=== PATIENT | male | born 1940 | race Caucasian/White ===

== ENCOUNTER 2024-08-13 09:29 | Emergency (ER) | payer MEDICARE, OTHER, SELFPAY ==
[2024-08-13 09:33] VITALS: BP 130/61
[2024-08-13 09:36] VITALS: BP 130/61
[2024-08-13 09:59] LABS: % Basophils 0.4 % (0-2); % Eosinophils 0.4 % (0-6); % Immature Granulocytes 0.2 % (0-0.5); % Lymphocytes 17.9 % (20.5-51.1); % Monocytes 8.3 % (1.7-9.3); % Neutrophils 72.8 % (42.2-75.2); Absolute Lymphocytes 1.6 10^3/uL (1.2-3.4); Absolute Monocytes 0.8 10^3/uL (0.1-0.6); Absolute Neutrophils 6.6 10^3/uL (1.4-6.5); Hemoglobin 14.8 g/dL (13.0-18.0); Mean Corp Hgb Conc. 33.6 g/dL (33.0-37.0); Mean Corpuscular Hgb 31.2 pg (27.0-31.0); Mean Corpuscular Volume 92.8 fL (80.0-94.0); Mean Platelet Volume 9.9 fL (7.4-10.4); Nucleated Red Blood Cells % 0 % (-); Platelet Count 156 10^3/uL (130-400); Red Blood Cell Count 4.74 10^6/uL (4.70-6.10); White Blood Cell Count 9.1 10^3/uL (4.8-10.8)
[2024-08-13 10:00] VITALS: BP 103/56
[2024-08-13 10:09] LABS: COVID-19 Antigen Positive (Negative)
[2024-08-13 10:11] LABS: Blood Urea Nitrogen 28 mg/dl (9-20); Calcium 9.2 mg/dl (8.4-10.2); Carbon Dioxide 25 mmol/L (22-30); Chloride 105 mmol/L (98-107); Glucose 112 mg/dl (70-99); Sodium 142 mmol/L (135-145); eGFR > 60.00
[2024-08-13 10:12] LABS: Lactic Acid 1.3 mmol/L (0.7-2.0)
--- NOTE | 2024-08-13 10:58 | ED.GENMED ---
History of Present Illness
General
Chief Complaint: Cold/Flu/URI Symptoms
Source: patient and records
Exam Limitations: clinical condition, non verbal-adult, altered mental status and dementia
Time Seen by Provider: 08/13/24 09:55
Nursing documentation reviewed up to this point in time: agreed with
History of Present Illness
History of Present Illness:
84-year-old male half-way patient nonverbal multiple chronic medical conditions presents with cough congestion low pulse ox in the high 80s currently diagnosed with COVID symptoms started 2 days ago here he has occasional cough, oxygen is fine
on room air unable to provide much meaningful history
Past History
Past History
ED Past Medical History: Other (Dementia)
ED Past Surgical History: None
Social History
Tobacco: Non-smoker
Alcohol: None
Drug: None
Living: half-way
Employment: Not employed
Phy Exam
Physical Exam
Physical Exam:
Physical Exam
General: Chronically ill male
Neck: Dry lips
Heart: Regular
Lungs: Crackles bilateral
Abdomen: Soft
Neuro: Confused aphasic
Skin: no rash
Psychiatric: unable to access
Extremities: no edema.
Sepsis
Sepsis Screening
Sepsis Assessment: Sepsis Ruled Out
Sepsis Screen
Sepsis Screen: Sepsis Ruled Out
Date: 08/13/24
Time: 12:16
Course
Orders/Labs/Results
Orders:
Orders
08/13/24 09:41
CXR2 [CR Chest - 2 Views ] Urgent
Comment:
Reason For Exam: cough
08/13/24 09:44
Basic Metabolic Panel Urgent
COVID-19 Antigen Urgent
Source: Nasal Swab
Complete Blood Count/With Diff Urgent
Lactic Acid Urgent
Blood Culture Urgent
ADELFO Source: Blood/Venous
Specimen Description:
08/13/24 11:15
0.9% Sodium Chloride 1000 ml [Nss] 1,000 ml IV BOLUS
Acetaminophen [Tylenol Suspension] 650 mg PO NOW STA
Abnormal Lab Results
08/13/24
09:44
MCH 31.2 H pg
(27.0-31.0)
Absolute Neuts (auto) 6.6 H 10^3/uL
(1.4-6.5)
Absolute Monos (auto) 0.8 H 10^3/uL
(0.1-0.6)
Lymphocytes % 17.9 L %
(20.5-51.1)
BUN 28 H mg/dl
(9-20)
Glucose 112 H mg/dl
(70-99)
SARS-CoV-2 Antigen Positive A
(Negative)
08/13/24 09:44
08/13/24 09:44
Vital Signs
Initial and Last Documented VS:
Initial Vital Signs
Temp Pulse Resp BP Pulse Ox
100 F 88 18 130/61 93
08/13/24 09:33 08/13/24 09:33 08/13/24 09:33 08/13/24 09:33 08/13/24 09:33
Last Documented Vital Signs
Temp Pulse Resp BP Pulse Ox
100 F 89 19 115/71 93
08/13/24 09:33 08/13/24 11:00 08/13/24 11:00 08/13/24 11:00 08/13/24 10:45
MDM/Problems Addressed
Differential Diagnosis Includes:
Pneumonia COVID dehydration electrolyte abnormality
MDM/Problems Addressed:
Question of low pulse ox dehydration COVID
Chronic conditions affecting care: DM and Neurological disorder
Acute Exacerbation and/or Progression of Chronic Illness: DM and Neurological disorder
*Radiology
Radiology exam reviewed: radiology read reviewed
*Pulse Oximetry
Patient hypoxic: no
*Gas[employer] Service Attendant Interpretation
Rate: normal
Interpretation: normal
Heart Rate: 78
*Critical Care Note
Total Time (30-74mins, 75-104mins- exclusive of procedures): Not Applicable
Update Note
Update Note:
Update patient oxygenating well here does look dehydrated with low-grade fever we will start saline and some Tylenol chest x-ray is pending will touch base with pharmacy to see if he would be a candidate for Paxlovid
1215, reviewed with pharmacy he can take Paxlovid
ED Attending Note
-
Portions of this chart may have been created with voice recognition software.� Occasional wrong word or��sound alike� substitutions may have occurred due to the inherent limitations of voice recognition software.
Discharge Plan
Departure
Patient Disposition: Longterm/SNF
Date of Disposition: 08/13/24
Time of Disposition: 12:13
Condition: Fair
Covid-19: Confirmed COVID-19
Discharge Problem:
COVID-19
Instructions: COVID-19 ED, COVID-19 in adults - Discharge instructions
Prescriptions:
New
Paxlovid 150 mg x 2- 100 mg Tablet
See Rx Instructions .ROUTE .COMPLEX 5 Days Qty: 30 0RF
Rx Instructions:
1 dose PO BID
Take Nirmatrelvir 300 mg (2 tabs) and Ritonavir 100 mg (1 tab) by mouth twice a day in AM and PM for 5 days.
No Action
potassium chloride 10 MEQ capsule, extended release
20 meq PO DAILY
donepezil 10 MG tablet
10 mg PO DAILY
sertraline 50 MG tablet
50 mg PO DAILY
miconazole nitrate [Miconazorb AF] 1 APPLIC powder
1 applic topical Q8HPRN PRN (Reason: red,irritated skin in groin)
magnesium hydroxide 30 ML suspension
30 ml PO DAILYPRN PRN (Reason: if no bm x 3 days)
bisacodyl 10 MG suppository
10 mg SC DAILYPRN PRN (Reason: if mom ineffective in 8 hrs)
sennosides [senna] 1 TABLET tablet
2 tab PO DAILY
acetaminophen 325 mg Tablet
650 mg PO BID
aspirin 81 mg Tablet,Delayed Release (Dr/Ec)
81 mg PO DAILY
emollient Lotion
1 ea topical BID
Glucagon Emergency Kit (human) 1 mg recon soln
1 mg IM PRN PRN (Reason: hypoglycemia)
Rx Instructions:
May repeat in 15min if still symptomatic
insulin lispro [Humalog KwikPen Insulin] 100 unit/mL insulin pen
0 sliding scale dose SC ACHS
Rx Instructions:
if 201-250: 2 units; 251-300: 4 units; 301-350: 6 units; 351-400: 8 units; 401-450: 10 units. Call MD if BS<60 or >450.
(DME) Skin-Prep Wipes Swab
MISCELLANEOUS
Rx Instructions:
Apply to heels and achillies every PM
acetaminophen 325 MG tablet
650 mg PO Q4HPRN PRN (Reason: mild pain/ fever>100F)
Rx Instructions:
not to exceed 3000mg/day
insulin glargine [Lantus U-100 Insulin] 1,000 UNITS/10 ML solution
18 units SC HS
docusate sodium 100 MG capsule
100 mg PO BID
insulin aspart U-100 [Novolog FlexPen U-100 Insulin] 300 UNITS/3 ML insulin pen
5 unit SC BID@1200,1700
Rx Instructions:
before lunch and dinner
Referrals:
Brad Gustafson I., DO [Family Provider] -
Interventions
Interventions:
*Risk Screen - Suicide Last Done: 08/13/24 09:33
*General Assessment Last Done: 08/13/24 09:33
*Neglect/Abuse Screening Last Done: 08/13/24 09:33
ED- Fall Risk Assessment Last Done: 08/13/24 09:33
*ED COVID-19 Vaccine History Last Done: 08/13/24 09:33
ED- Pulmonary Assessment Last Done: 08/13/24 10:17
Discharge Date and Time
Print Language: CROATIAN
[2024-08-13 11:00] VITALS: BP 115/71
[2024-08-13] MEDS: NSS 1000 IV (12:03)
== END 2024-08-13 15:02 ==
LOC: EMR 09:29
PROVIDERS: EMERGENCY PHYSICIAN Emergency Medicine; FAMILY PHYSICIAN Internal Medicine
DX: U07.1 COVID-19 (principal); F03.90 Unspecified dementia, unspecified severity, without behavioral disturbance, psychotic disturbance, mood disturbance, and anxiety; E11.9 Type 2 diabetes mellitus without complications
CPT/HCPCS: 96360; 99284; 71046; 80048; 83605; 85025; 87040; 87811

== ENCOUNTER → 2025-05-29 13:22 | Outpatient (REF) | payer MEDICARE, OTHER, SELFPAY | LOC: RAD 13:22 | PROVIDERS: ATTENDING PHYSICIAN Registered Nurse | DX: I73.9 Peripheral vascular disease, unspecified (principal) | CPT/HCPCS: 75635; Q9967 ==